=== PATIENT | female | born 1980 | race Caucasian/White ===

== ENCOUNTER 2025-05-20 14:24 | Emergency (ER) | payer SELFPAY ==
[2025-05-20 14:46] VITALS: BP 122/76; PULSE 75; RESP 18; TEMP 36.8; O2SAT 97; BMI 23.7
--- OUTSIDE RECORDS SUMMARY | 2025-05-20 15:18 | XMS_ITS | Encounter Summary ---
Author Organization [employer] Address [address] [place] [address] Care Team Providers Care Kettleman Name Role Phone Unavailable Primary Care Provider Unavailabl e Encounter Details Date Type Department Care Team (Late st Contact Info) Description 05/19/2025 External Device Data [facility] AB[facility]CTION Provider, Abstract NO ADDRESS ON FILE Social History Tobacco Use Types Packs/Day Years Used Date Smoking Tobacco: Never Alcohol Use Standard Drinks/Week Comments Never 0 (1 standard drink = 0.6 oz pur e alcohol) Comments No Sex and Gender Information Value Date Recorded Sex Assigned at Not on file Legal Sex Female 8:32 AM CDT Gender Identity Not on file Sexual Orientation Not on file documented as of this encounter Plan of Treatment Not on file documented as of this encounter Visit Diagnoses Not on filedocumented in this encounter
--- OUTSIDE RECORDS SUMMARY | 2025-05-20 15:18 | XMS_ITS | Clinical Summary ---
Author Organization [facility] Address [address] [address] Phone Care Team Providers Care Pipelaying Fitter Name Role Phone Unavailable Primary Care Provider Unavailabl e Allergies No known active allergies Medications No known medications Active Problems Problem Noted Date Diagnosed Date Labyrinthitis, serous, bilateral 01/13/2025 Encounters Date Type Department Care Team Description 05/19/2025 External Device Data [facility] ABSTRACTION Provider, Abstract 05/19/2025 External Device Data [facility] ABSTRACTION Provider, Abstract 05/19/2025 External Device Data [facility] ABSTRACTION Provider, Abstract 05/04/2025 External Device Data [facility] ABSTRACTION Provider, Abstract 04/21/2025 External Device Data [facility] ABSTRACTION Provider, Abstract 04/13/2025 External Device Data [facility] ABSTRACTION Provider, Abstract 04/13/2025 External Device Data [facility] ABSTRACTION Provider, Abstract 04/13/2025 External Device Data [facility] ABSTRACTION Provider, Abstract 03/09/2025 External Device Data [facility] ABSTRACTION Provider, Abstract from Last 3 Months Social History Tobacco Use Types Packs/Day Years Used Date Smoking Tobacco: Never Tobacco Cessation:Counseling Given: Not Answered Alcohol Use Standard Drinks/Week Comments Never 0 (1 standard drink = 0.6 oz pur e alcohol) Comments No Sex and Gender Information Value Date Recorded Sex Assigned at Not on file Legal Sex Female 8:32 AM CDT Gender Identity Not on file Sexual Orientation Not on file Last Filed Vital Signs Vital Sign Reading Time Taken Comments Blood Pressure 124/76 01/13/2025 5:30 PM CDT Pulse 73 01/13/2025 5:30 PM CDT Temperature 36.7 C (98.1 F) 01/13/2025 3:26 PM CDT Respiratory Rate 11 01/13/2025 5:30 PM CDT Oxygen Saturation 97% 01/13/2025 5:30 PM CDT Inhaled Oxygen Concentration - - Weight 75.3 kg (166 lb) 01/13/2025 3:26 PM CDT Height 167.6 cm (5' 6 ) 01/13/2025 3:26 PM CDT Body Mass Index 26.79 01/13/2025 3:26 PM CDT Plan of Treatment Health Maintenance Due Date Last Done Comments Pre-Diabetes and Diabetes Screening 1980 HEPATITIS B VACCINES (1 of 3 - 19+ 3-dose series) 1999 04/16/2019, 04/16/2019, 03/16/2019 HPV/Cotest (21-29) 2001 CERVICAL CANCER SCREENING 2010 HPV/Cotest (30-65) 2010 PAP SMEAR 2010 BREAST CANCER SCREENING 2020 INFLUENZA VACCINE (#1) 2025 DTAP/TDAP/TD VACCINES (3 - Td or Tdap) 04/16/2029 04/16/2019, 03/16/2019 HPV VACCINES Aged Out No longer eligi ble based on patient's age to complete this topic
--- OUTSIDE RECORDS SUMMARY | 2025-05-20 15:18 | XMS_ITS | Encounter Summary ---
Author Organization [employer] Address [address] [place] [address] Care Team Providers Care Naturopath Name Role Phone Unavailable Primary Care Provider [...]
--- OUTSIDE RECORDS SUMMARY | 2025-05-20 15:18 | XMS_ITS | Encounter Summary ---
Author Organization [employer] Address [address] [place] [address] Care Team Providers Care Field Reporter Name Role Phone Unavailable Primary Care Provider [...]
[2025-05-20 15:22] LABS: Glucose Urine UA Negative (Normal); Nitrate Urine Negative (Negative); Specific Gravity, Urine 1.018 (1.005-1.030)
[2025-05-20 15:25] LABS: Add Urine Microscopic? YES
--- NOTE | 2025-05-20 15:43 | ED_ITS ---
HPI - Extremity Problem 2 General: Chief complaint: Extremity Problem,Nontraumatic Stated complaint: SWELLING FEET, LEGS AND HANDS Time Seen by Provider: 05/20/25 15:43 History of Present Illness: 44-year-old female presents emergency ro om complaining of swelling in her legs hands and feet. Some bloating as well. Began 2 days ago. She denies any chest pain no shortness of breath no dysuria urgency or frequency. No new medications. No history of any heart disease liver disease or kidney disease. She has some mild swelling of the lower extremities. No new medications or [id number] medications no fever sweats or chills. Associated symptoms: Deny chest pain, fever(s) or rash Related Data Previous Rx's ?Medication ?Instructions ?Recorded furosemide 20 mg tablet (Lasix) 20 mg PO DAILY #3 tabs 05/20/25 Allergies Allergy/AdvReac Type Severity Reaction Status Date / Time No Known Allergies Allergy Verified 05/20/25 14:48 Review of Systems 2 Const: Denies: fever(s) or chills Card: Reports: edema and swelling of feet/ankles; Denies: chest pain Resp: Denies: dyspnea GI: Denies: abdominal pain : Denies: dysuria, urinary frequency or urinary urgency Musc: Reports: extremity pain and extremity swelling; Denies: neck pain or back pain Skin/Breast: Denies: rash Physical Exam 2 Const: GENERAL APPEARANCE: cooperative and comfortable O RIENTATION/CONSCIOUSNESS: Yes awake, Yes oriented to person, Yes oriented to place and Yes oriented to time HENMT: COMMON NORMALS: normocephalic, atraumatic and hearing grossly normal bilaterally HEAD & SCALP: normocephalic and atraumatic Resp: COMMON NORMALS: normal respiratory effort, No retractions, No use of accessory muscles and clear to auscultation bilaterally AUSCULTATION: clear to auscultation bilaterally Cardio: COMMON NORMALS: regular rate, regular rhythm and No murmurs present (Cardio) RATE: regular rate RHYTHM: regular rhythm GI: COMMON NORMALS: Soft to palpation and No hepatosplenomegaly present A USCULTATION: Yes normoactive bowel sounds PALPATION: Yes Soft to palpation, No Tenderness to palpation present (GI), No Guarding due to palpation present (GI) and Yes No hepatosplenomegaly present Extremity: COMMON NORMALS: normal to inspection, capillary refill normal and no calf tenderness OTHER: Trace edema lower extremities Neuro: SENSORIUM/ORIENTATION: Yes oriented to person, Yes oriented to place and Yes oriented to time Skin: COMMON NORMALS: no rashes or lesions noted GENERAL SKIN EXAM: no rashes or lesions noted Course 2 Vital Signs: Vital signs: Vital Signs Temperature 98.2 F 05/20/25 14:46 Pulse Rate 65 05/20/25 16:53 Respiratory Rate 16 05/20/25 16:53 Blood Pressure 131/80 05/20/25 16:53 Pulse Oximetry 100 05/20/25 16:53 Oxygen Delivery Me thod Room Air 05/20/25 14:46 MDM - Extremity (Nontraumatic) Medical Decision Making Laboratory test unremarkable patient has trace lower extremity edema will start on Lasix 20 mg once a day for 3 days established her to follow-up with the PCP schedule an outpatient echo. No sign of congestive heart failure acute renal failure liver failure. No sign of DVT. Lab Data 05/20/25 15:53 05/20/25 15:53 Laboratory Results WBC 6.59 10^3/uL (3.29-11.43) 05/20/25 15:53 RBC 4.08 10^6/uL (3.85-5.65) 05/20/25 15:53 Hgb 11.80 g/dL (11.27-16.99) 05/20/25 15:53 Hct 36.5 % (36-47) 05/20/25 15:53 MCV 89.5 fl (85-98) 05/20/25 15:53 MCH 28.9 pg (27-33) 05/20/25 15:53 MCHC 32.3 g/dL (30-55) 05/20/25 15:53 RDW 14.1 % (12.1-15.1) 05/20/25 15:53 Plt Count 310 10^3/cmm (157-399) 05/20/25 15:53 MPV 10.7 fL (7.4-10.4) H 05/20/25 15:53 Neut % (Auto) 56.6 % 05/20/25 15:53 Lymph % (Auto) 30.8 % 05/20/25 15:53 [place] % (Auto) 9.3 % 05/20/25 15:53 Eos % (Auto) 2.3 % 05/20/25 15:53 Baso % (Auto) 0.8 % 05/20/25 15:53 Neut # (Auto) 3.74 10^3/uL (1.8-7.7) 05/20/25 15:53 Lymph # (Auto) 2.0 10^3/uL (0.8-4.8) 05/20/25 15:53 [place] # (Auto) 0.6 10^3/uL (0.2-0.9) 05/20/25 15:53 Eos # (Auto) 0.2 10^3/uL (0.0-0.8) 05/20/25 15:53 Baso # (Auto) 0.1 10^3/uL (0.0-0.1) 05/20/25 15:53 Nucleated RBC % (auto) 0 % 05/20/25 15:53 Nucleated RBCs # 0.0 /100WBC 05/20/25 15:53 Sodium 142 mmol/L (136-145) 05/20/25 15:53 Potassium 4.1 mmol/L (3.5-5.1) 05/20/25 15:53 Chloride 106 mmol/L (98-107) 05/20/25 15:53 Carbon Dioxide 25 mmol/L (22-29) 05/20/25 15:53 Anion Gap 15.1 (5-19) 05/20/25 15:53 BUN 15 mg/dL (6-20) 05/20/25 15:53 Creatinine 0.7 mg/dL (0.5-0.9) 05/20/25 15:53 GFR Calculation 90.9 mL/min (90-130) 05/20/25 15:53 Glucose 100 mg/dL (65-115) 05/20/25 15:53 Calculated Osmolality 295 mOsm/kg (285-295) 05/20/25 15:53 Calcium 9.2 mg/dL (8.5-10.5) 05/20/25 15:53 Magnesium 2.3 mg/dL (1.7-2.3) 05/20/25 15:53 Total Bilirubin 0.2 mg/dL (0.15-1.2) 05/20/25 15:53 AST 9 U/L (0-32) 05/20/25 15:53 ALT 20 U/L (0-33) 05/20/25 15:53 Alkaline Phosphatase 88 U/L (35-105) 05/20/25 15:53 NT-Pro-B Natriuret Pep 125 pg/mL (0-125) 05/20/25 15:53 Total Protein 7.1 g/dL (6.6-8.7) 05/20/25 15:53 Albumin 4.1 g/dL (3.5-5.2) 05/20/25 15:53 Globulin 3.0 g/dL (1.3-4.6) 05/20/25 15:53 Urine Color Yellow (Yellow) 05/20/25 15:16 Urine Appearance Turbid (CLEAR) A 05/20/25 15:16 Urine pH 7.0 (5-7) 05/20/25 15:16 Ur Specific [place] 1.018 (1.005-1.030) 05/20/25 15:16 Urine Protein Negative (Negative) 05/20/25 15:16 Urine Glucose (UA) Negative (Normal) 05/20/25 15:16 Urine Ketones Negative (Negative) 05/20/25 15:16 Urine Blood Negative (Negative) 05/20/25 15:16 Urine Nitrate Negative (Negative) 05/20/25 15:16 Urine Bilirubin Negative (Negative) 05/20/25 15:16 Urine Urobilinogen 0.2 mg/dL (Negative) 05/20/25 15:16 Ur Leukocyte Esterase Negative (Negative) 05/20/25 15:16 Urine RBC 0-2 /hpf (0-2) 05/20/25 15:16 Urine WBC 0-5 /hpf (0-5) 05/20/25 15:16 Ur Squamous Epith Cells 0-5 /hpf (0-5) 05/20/25 15:16 Amorphous Sediment Not Reportable 05/20/25 15:16 Urine Bacteria None seen /hpf (NONE) 05/20/25 15:16 Hyaline Casts 0-4 /lpf H 05/20/25 15:16 All radiology interpretation(s) finalized by discharge Discharge Plan Discharge Patient Disposition: Home Clinical Impression: Lower extremity edema Condition: Stable Prescriptions: New furosemide [Lasix] 20 mg tablet 20 mg PO DAILY Qty: 3 0RF Discharge Orders: Discharge ED (Routine); Ordered 05/20/25 Ordered By: Jacek Li Discharge Diet: Low Salt Discharge Activity: Resume usual activity Patient Instructions: Opioid Safety, Pain Management, Patient Portal & Chang Instructions Activity Restrictions/Additional Instructions: Thank you for choosing [facility] for your healthcare needs today. It is very important that you follow up as instructed or that you return to the Emergency Department should you have concerns or if your condition changes or worsens in any way. You are seen in the emergency room with complaint swelling in your extremities. Laboratory test and physical exam were negative. There is no sign of acute kidney failure or congestive heart failure. Will discharge home recommend Lasix 20 mg once a day for 3 days case management will try to make arrangements for you to follow-up and establish with a primary care physician Print Language: [place]ican Coding Level of Care Code ED Hyperbaric Technologist for Savita Cunningham
[2025-05-20 15:46] VITALS: BP 131/80; PULSE 64; RESP 16; O2SAT 100
--- NOTE | 2025-05-20 15:52 | XR_ITS ---
WS: [id number] XR chest 1V portable [id number] REASON FOR EXAM: dyspnea/cough FINDINGS: The heart and the mediastinum are within normal limits. Calcified granulomatous disease in both hemithoraces. No acute pulmonary parenchymal or pleural disease. No significant abnormality of the bony thorax. XR/XR chest 1V portable [id number] IMPRESSION: No acute chest abnormality.
--- NOTE | 2025-05-20 15:52 | ECG_ITS ---
[facility]: [facility] Pat Name: Makayla Rocha Department: Room: Gender: Female Portable Router Operator: : 1980 Requested By: Jacek Loving Order Number: [id number] Janel MD: Liz Guerra M.D. Measurements Intervals [place] Rate: 58 P: 46 LA: 153 QRS: 47 QRSD: 83 T: 38 QT: 423 QTc: 418 Interpretive Statements SINUS BRADYCARDIA No previous ECG available for comparison Electronically Signed On 05-22-2025 14:12:07 CDT by Liz Guerra M.D. [email or web address]
[2025-05-20 16:01] LABS: Hematocrit 36.5 % (36-47); Hemoglobin 11.80 g/dL (11.27-16.99); Mean Corpuscular HGB Conc 32.3 g/dL (30-55); Mean Corpuscular Hemoglobin 28.9 pg (27-33); Mean Corpuscular Volume 89.5 fl (85-98); Nucleated Red Blood Cells % 0 %; Platelet Count 310 10^3/cmm (157-399); Red Blood Count 4.08 10^6/uL (3.85-5.65); White Blood Count 6.59 10^3/uL (3.29-11.43)
[2025-05-20 16:12] VITALS: BP 131/80; PULSE 68; RESP 16; O2SAT 98
[2025-05-20 16:31] VITALS: BP 131/80; PULSE 67; RESP 16; O2SAT 98
[2025-05-20 16:40] LABS: Alanine Aminotransferase 20 U/L (0-33); Albumin Level 4.1 g/dL (3.5-5.2); Alkaline Phosphatase 88 U/L (35-105); Anion Gap 15.1 (5-19); Aspartate Amino Transferase 9 U/L (0-32); Blood Urea Nitrogen 15 mg/dL (6-20); Calcium 9.2 mg/dL (8.5-10.5); Carbon Dioxide 25 mmol/L (22-29); Chloride 106 mmol/L (98-107); Creatinine Clr Calc Pharmacy 107.8998; Globulin 3.0 g/dL (1.3-4.6); Glucose 100 mg/dL (65-115); Magnesium 2.3 mg/dL (1.7-2.3); NT Pro B Type Natriuretic Pept 125 pg/mL (0-125); Osmolality Calculated 295 mOsm/kg (285-295); Potassium 4.1 mmol/L (3.5-5.1); Sodium 142 mmol/L (136-145); Total Protein 7.1 g/dL (6.6-8.7)
[2025-05-20 16:53] VITALS: BP 131/80; PULSE 65; RESP 16; O2SAT 100
--- NOTE | 2025-05-24 09:05 | DCPLANNER ---
Message sent to Clinic to establish a PCP-
== END 2025-05-20 17:01 | disposition home or self-care (01) ==
PROVIDERS: Emergency Provider Family Medicine
DX: R60.0 Localized edema (principal)
CPT/HCPCS: 36415; 71045; 80053; 81001; 83735; 83880; 85025; 93005; 99285